=== PATIENT | male | born 1945 | race Caucasian/White ===

== ENCOUNTER 2016-05-15 21:35 | Emergency (ER) | payer OTHER ==
[2016-05-15] MEDS ORDERED: OXYMETAZOLINE 30 ML NASAL SPRAY EACHNARE ONE (21:49)
[2016-05-15] MEDS ORDERED: LETS SOLN TOPICAL 1 EA SYR TP ONE (21:49)
[2016-05-15] MEDS ORDERED: SILVER NITRATE APPLICATOR 1 APPL TP ONE ×2 (21:49→22:20)
--- NOTE | 2016-05-15 22:00 | EDPHY ---
H & P Time Seen by Provider: 05/15/16 21:45 HPI/ROS: CHIEF COMPLAINT: Epistaxis since this morning HISTORY OF PRESENT ILLNESS: 70-year-old male with no anticoagulant use beyond daily aspirin complaining of on and off epistaxis left-sided since this morning. No digital trauma. No headache. No visual disturbance. No chest pain. No dyspnea. No back pain. No gingival bleeding. No melena or hematochezia. No hematuria. PCP: Dr. Edson Mata PHYSICAL EXAM (Prior to examination, patient consented to physical exam, hands were washed and my usual and customary physical exam procedures followed) 1) GENERAL: Well-developed, well-nourished, alert and oriented. Appears Anxious. 2) HEAD: Normocephalic 3) HEENT: large clot left side, removed revealing an area of active bleeding anteriorly. Posterior oropharynx is clear. 4) LUNGS: Breathing comfortably. Smoking Status: Never smoked Constitutional: Initial Vital Signs Temperature (C) 36.4 C 05/15/16 21:36 Heart Rate 73 05/15/16 21:36 Respiratory Rate 18 05/15/16 21:36 Blood Pressure 205/105 H 05/15/16 21:36 O2 Sat (%) 94 05/15/16 21:36 O2 Delivery Mode Room Air Allergies/Adverse Reactions: No Known Allergies Allergy (Unverified 01/16/15 14:14) Home Medications: Medication Instructions Recorded Aspirin [Aspirin 81mg (OTC)] 81 mg PO DAILY #30 tab 01/23/15 Diltiazem Cd [Cardizem ER 120 MG 120 mg PO DAILY #30 cap 01/23/15 (*)] MDM/Departure - MDM Procedures: Procedure: Epistaxis control. Indication: nosebleed not controlled by direct pressure. Risks, benefits, alternatives discussed with patient and consent obtained. The left nares was anesthetized with LAT. The anterior epistaxis was identified. The patient was treatedinitially with silver nitrate cautery however had breakthrough bleeding. Subsequently rapid rhino packing placed resulting in hemostasis Following the procedure the patient was re-examined and the bleeding was well controlled. The patient tolerated the procedure well. The procedure was performed by myself. At discharge the patient's nose is hemostatic. Medications Given: Discontinued Medications Oxymetazoline HCl (Afrin Nasal Witten) 2 sprays EACHNARE EDNOW ONE Stop: 05/15/16 21:50 Last Admin: 05/15/16 21:59 Dose: 1 spray Silver Nitrate/Potassium Nitrate (Silver Nitrate Applicator) 1 each TP EDNOW ONE Stop: 05/15/16 21:50 Last Admin: 05/15/16 22:22 Dose: 2 each Tetracaine/Epinephrine/Lidocaine (Lets Soln Topical) 1 ea TP EDNOW ONE Stop: 05/15/16 21:50 Last Admin: 05/15/16 22:23 Dose: Not Given - Depart Disposition: Home, Routine, Self-Care Clinical Impression: Anterior epistaxis Condition: Good Instructions: Nosebleed (ED) Referrals: Jaquan Peñaloza MD [Medical Doctor] - 05/17/16
[2016-05-15 22:56] VITALS: BP 170/68; PULSE 55; RESP 14; TEMP 97.9; O2SAT 95
== END 2016-05-15 22:54 | disposition home or self-care (01) ==
PROC: 2Y41X5Z Packing of Nasal Region using Packing Material (ICD-10-PCS; principal; 2016-05-15)
DX: R04.0 Epistaxis (principal); Z79.82 Long term (current) use of aspirin

== ENCOUNTER → 2016-08-10 | Outpatient (CLI) | payer OTHER ==
[~2016-08-10] MED LIST: IOPAMIDOL (ISOVUE-300) 100 ML BTL ONE
== END ==
LOC: FIMAGING 11:23
PROVIDERS: ATTEND Internal Medicine
DX: R31.9 Hematuria, unspecified (principal); R93.421 Abnormal radiologic findings on diagnostic imaging of right kidney; N28.1 Cyst of kidney, acquired; I70.0 Atherosclerosis of aorta
CPT/HCPCS: 74178; Q9967

== ENCOUNTER → 2016-09-20 | Outpatient (CLI) | payer OTHER | LOC: BMCIMAGING 09:22 | PROVIDERS: ATTEND Podiatrist Foot & Ankle Surgery | DX: M19.071 Primary osteoarthritis, right ankle and foot (principal) ==

== ENCOUNTER → 2017-03-20 | Outpatient (CLI) | payer OTHER | LOC: FIMAGING 13:23 | PROVIDERS: ATTEND Internal Medicine | DX: N28.1 Cyst of kidney, acquired (principal); J47.9 Bronchiectasis, uncomplicated | CPT/HCPCS: 74177; Q9967 ==